=== PATIENT | female | born 1990 | race Caucasian/White ===

== ENCOUNTER → 2024-06-26 | Outpatient (CLI) | payer MEDICAID, SELFPAY ==
--- NOTE | 2024-06-26 15:00 | XR_ITS ---
Examination: Wrist, left 3 views Technique: Wrist AP, oblique, lateral 3 views Date and time of exam: June 26, 2024 1514 hours INDICATIONS: Left wrist pain months. FINDINGS: Mild osteopenia Mild narrowing radiocarpal joint and first carpometacarpal joint No fracture No erosive or other significant arthritic change IMPRESSION: No erosive or other significant arthritic change
--- NOTE | 2024-06-26 15:00 | XR_ITS ---
Examination: Hand, left 3 views Technique: Hand AP, oblique, lateral 3 views Date and time of exam: June 26, 2024 1514 hours INDICATIONS: Hand pain months FINDINGS: No fracture or dislocation Mild juxta-articular bone demineralization No erosive or other significant arthritis No cortical bone destruction No opaque foreign body IMPRESSION: No erosive or other significant arthritic change
== END | disposition home or self-care (01) ==
LOC: CDIM 14:45
PROVIDERS: PCP Internal Medicine; Referring Provider Internal Medicine; Visit Provider Internal Medicine
DX: M79.642 Pain in left hand (principal); M25.532 Pain in left wrist
CPT/HCPCS: 73110; 73130

== ENCOUNTER 2025-04-25 13:01 | Emergency (ER) | payer MEDICAID, SELFPAY ==
[2025-04-25 14:09] VITALS: BP 123/88; PULSE 91; RESP 18; TEMP 36.7; O2SAT 98; BMI 31.3
--- NOTE | 2025-04-25 14:31 | PD.EDBACK ---
ED Back Injury Pain RME/HPI General Chief Complaint: Back Pain/Injury Stated Complaint: LOWER BACK PAIN X 3 DAYS Time Seen by Provider: 04/25/25 14:16 Arrival date/time: 04/25/25 13:01 RME / HPI RME / HPI Narrative: 34-year-old female with a past medical history of chronic back pain presents to the ER complaining of an acute exacerbation of her chronic back pain worse with movement since today. Patient was previously on pain management however she is unable to continue with them as she is about to try in vitro , patient tried a lidocaine patch without relief. Denies any fever, nausea, urinary symptoms, vomiting, new injury, saddle anesthesias, leg weakness. Related Data Previous Rx's ?Medication ?Instructions ?Recorded ferrous sulfate 325 mg (65 mg 325 mg PO BID #60 tabs 03/20/24 iron) tablet hydrocodone 5 mg-acetaminophen 325 1 tab PO Q6H PRN pain #20 tabs 03/20/24 mg tablet ibuprofen 600 mg tablet 600 mg PO Q6H PRN pain #30 tabs 03/20/24 labetalol 200 mg tablet 200 mg PO BID #60 tabs 03/20/24 cyclobenzaprine 10 mg tablet 10 mg PO TID #10 tabs 04/25/25 Allergies Allergy/AdvReac Type Severity Reaction Status Date / Time No Known Allergies Allergy Verified 03/03/24 12:38 ED Exam Narrative Physical exam: Constitutional: Patient alert and oriented. Well appearing. No acute distress. Not toxic appearing. Head: Normocephalic, atraumatic. Eyes: Conjunctiva clear bilaterally. Mouth/Throat: Mucous membranes moist. No stridor or muffled voice. Handling secretions without difficulty. Neck: Supple. Trachea midline. No JVD. No nuchal rigidity. No midline tenderness or step-offs. Normal range of motion. Respiratory: Normal effort. No accessory muscle use or respiratory distress. Abdomen: Soft. Non-distended. Non-tender throughout. No pulsatile mass. No guarding or rebound. Back: No midline tenderness or step-offs. No CVA tenderness bilaterally. Positive paralumbar tenderness to palpation bilaterally. Upper Extremities: No gross deformities. No focal motor deficits bilaterally. Lower Extremities: Heel-toe gait intact without difficulty. Deep tendon reflexes 2+ symmetric for lower extremities bilaterally. No gross deformities. No edema or calf tenderness. No focal motor or sensory deficits bilaterally. Neuro: Speech normal. CN II?XII grossly intact. GCS 15. Skin: Warm, dry, normal color. Psych: Normal affect. Cooperative. Normal insight. Course Quality Measures none Orders Category Date Time Status Morphine* Inj Med 04/25/25 14:35 Discontinued 4 mg IM X1 ONE Ondansetron Odt [Zofran Odt] Med 04/25/25 14:35 Discontinued 4 mg PO X1 ONE Reevaluation(s) Reevaluation #1: At the time of reassessment, the patient remains alert and oriented ?3 with GCS 15. Vitals are normal, pain is controlled, and the patient is tolerating oral intake without nausea or vomiting. The patient is agreeable to discharge and verbalizes understanding of the diagnosis, studies, treatment plan, medications (including side effects/precautions), and strict ER return precautions as discussed in the ED. All concerns were addressed, and the patient is comfortable with the plan. Time: 16:00 Vital Signs Vital signs: Vital Signs Temperature 98.1 F 04/25/25 14:09 Pulse Rate 91 04/25/25 14:09 Respiratory Rate 18 04/25/25 14:09 Blood Pressure 123/88 H 04/25/25 14:09 Pulse Oximetry (%) 98 04/25/25 14:09 Oxygen Delivery Method Room Air 04/25/25 14:09 Back Pain / Injury MDM Narrative MDM Narrative:: This patient presents with acute low back pain most consistent with musculoskeletal strain or spasm. Pain is localized without radiation, paresthesia, or weakness. No bowel or bladder incontinence.No acute neurologic deficits. Doubt cauda equina syndrome, spinal cord compression, infection, trauma, malignancy, dissection, or nephrolithiasis based on history, exam, and absence of red flag symptoms. Doubt renal colic, pyelonephritis, or obstructive uropathy?pain localized to lower back without flank radiation or CVA tenderness. Advanced imaging (CT/MRI) considered but not indicated given absence of neurologic deficits or high-risk features. Plan: Symptomatic management with analgesics, stretching, and activity as tolerated. Discussed medication precautions and return precautions for worsening pain, fever, new weakness, numbness, or bowel/bladder changes. Advised follow-up with PCP within 1?2 days for reassessment. Patient data External records reviewed:: [facility] previous records Clinical information provided by:: patient Social determinants that could affect healthcare access:: none Patient has the following chronic illnesses:: Chronic back pain How is presenting disease/condition affected by chronic disease/condition?: exacerbated by Evaluation data The following diagnostics were reviewed and interpreted by me:: other (specify) Lab and/or radiology exams considered but not ordered:: Additional Labs and radiology considered, but not ordered as they were not clinically indicated at this time. Interpretation Summary: As noted Medications / Prescriptions Medications or Prescriptions considered but not ordered:: I considered prescription management (both outpatient prescriptions AND drug treatment in the ER) and decided that this was necessary and was prescribed as charted. Medication administrations:: Medication Administration History Discontinued Medications Morphine Sulfate (Morphine Sulf Inj 4 Mg/Ml Vial) 4 mg IM X1 ONE Stop: 04/25/25 14:36 Last Admin: 04/25/25 15:44 Dose: 4 mg Documented By: Ondansetron HCl (Ondansetron Odt 4 Mg Tabrap) 4 mg PO X1 ONE; Protocol Stop: 04/25/25 14:36 Last Admin: 04/25/25 15:43 Dose: 4 mg Documented By: As noted Consultations Consultation(s) initiated? (list below): No Diagnosis Differential diagnosis back pain/injury: lumbar radiculopathy, strain of lumbar region and thoracic back pain Most likely diagnosis given after review of the tests above:: Musculoskeletal back pain Admission Indicated Admission indicated?: not indicated Admission Request Was there a request for admission?: No Disposition Plan Disposition Plan: Discharge Discharge Attestation Discharge Attestation: The patient and all family members were given an opportunity to ask questions and understood the discharge instructions. Discharge instructions specifically effects, indications for sooner follow up or return to the emergency department, and the expected course of current diagnosis. Patient condition: Stable Discharge Plan Plan Patient Disposition: HOME (Self Care) Patient condition on transfer: Stable Prescriptions/Referrals Prescriptions/Med Rec: New cyclobenzaprine 10 mg tablet 10 mg PO TID Qty: 10 0RF No Action hydrocodone-acetaminophen 5-325 mg tablet 1 tab PO Q6H MDD 4 PRN (Reason: pain) Qty: 20 0RF ibuprofen 600 mg tablet 600 mg PO Q6H PRN (Reason: pain) Qty: 30 0RF labetalol 200 mg tablet 200 mg PO BID Qty: 60 1RF ferrous sulfate 325 mg (65 mg iron) tablet 325 mg PO BID Qty: 60 1RF Problem List Clinical Impression: Low back pain Patient/Caregiver Discharge Instructions Education Materials: Back Basics: A Healthy Spine Additional Instructions: Follow up with your primary medical doctor within 24 hours. Return to the Emergency Room immediately for any new, worsening, continuing symptoms or any concerns at all. Return to the Emergency Room within 24 hours if you are unable to follow up with your primary medical doctor within 24 hours. Print Language: Telugu Stand Alone Forms: Kesha Award Info., Patient Portal Info Letter PA/[employer] HAND Supervising Physician PA/[employer] HAND Supervising Physician: Dr. Davis
[2025-04-25] MEDS: ONDANSETRON ODT 4 MG TABRAP PO (15:43)
[2025-04-25] MEDS: MORPHINE SULF INJ 4 MG/ML VIAL IM (15:44)
== END 2025-04-25 16:51 | disposition home or self-care (01) ==
PROVIDERS: Emergency Provider Family Medicine
DX: M54.50 Low back pain, unspecified (principal); G89.29 Other chronic pain
CPT/HCPCS: 96372; 99282; J2270; Q0162

== ENCOUNTER 2025-06-08 23:19 | Emergency (ER) | payer MEDICAID, SELFPAY ==
[2025-06-08 23:21] VITALS: BMI 33.6
[2025-06-09 00:39] VITALS: BP 123/89; PULSE 80; RESP 20; TEMP 36.8; O2SAT 98
--- NOTE | 2025-06-09 01:09 | XR_ITS ---
Examination: Complete OB ultrasound, less than 14 weeks, transabdominal Date and time of exam: June 09, 2025, 0134 hours INDICATIONS: Pelvic pain beginning 2 days ago, early intrauterine gestation by history Technique: Obstetrical ultrasound images less than 14 weeks performed via transabdominal imaging Findings: Uterus 8.4 cm endometrial stripe 1.3 cm No uterine mass or intrauterine gestation Right ovary 4.9 cm arterial flow 22 x 13 mm cyst Left ovary obscured by bowel gas IMPRESSION: No intrauterine gestation no uterine mass
--- NOTE | 2025-06-09 01:09 | PD.EDRME ---
Rapid Medical Screening Exam RME Arrival date/time: 06/08/25 23:19 This is a case of 34-year-old female who came into the emergency room due to abdominal cramping patient took test and it is positive patient took IVF last month patient now have abdominal cramping but no vaginal bleeding vaginal discharge vaginal spotting Chief Complaint: Abdominal Pain Time Seen by Provider: 06/08/25 23:25 Vital signs: Vital Signs Temperature 98.3 F 06/09/25 00:39 Pulse Rate 80 06/09/25 00:39 Respiratory Rate 20 06/09/25 00:39 Blood Pressure 123/89 H 06/09/25 00:39 Pulse Oximetry (%) 98 06/09/25 00:39 Oxygen Delivery Method Room Air 06/09/25 00:39 Exam: Abdominal exam is benign nonsurgical no guarding no rebound no rigidity no tenderness Clinical Impression: Abdominal pain in
[2025-06-09 02:05] LABS: Collection Type, Urine Voided
[2025-06-09 02:14] LABS: Basophils # (Auto) 0.0 Thou/mm3 (0.0-0.2); Basophils % (Auto) 0 % (0-2.5); Eosinophils # (Auto) 0.0 Thou/mm3 (0.0-0.5); Eosinophils % (Auto) 0 % (0-10); Hematocrit 42.7 % (36.0-46.0); Hemoglobin 14.2 g/dL (12.0-16.0); Immature Granulocytes Auto 0.04 Thou/mm3 (0.00-0.00); Lymphocytes # (Auto) 2.5 Thou/mm3 (1.0-4.8); Lymphocytes % (Auto) 25 % (10-50); Mean Corpuscular HGB Conc 33.3 g/dl (31.0-37.0); Mean Corpuscular Hemoglobin 29.7 pg (25.0-35.0); Mean Corpuscular Volume 89 fL (80-100); Monocytes # (Auto) 0.6 Thou/mm3 (0.0-0.8); Monocytes % (Auto) 6 % (0-12); Neutrophils # (Auto) 6.6 Thou/mm3 (1.8-7.7); Neutrophils % (Auto) 68 % (37-80); Nucleated Red Blood Cell # 0.00 Thou/mm3 (0.00-0.00); Nucleated Red Blood Cell % 0 /100 WBC (0); Platelet Count 200 Thou/mm3 (140-440); RDW Standard Deviation 36.9 fL (36.4-46.3); Red Blood Count 4.78 Miln/mm3 (4.00-5.20); White Blood Count 9.7 Thou/mm3 (3.6-11.0)
[2025-06-09 02:25] LABS: Amorphous Crystals,Urine Present (Absent); Bacteria,Urine 1+; Bilirubin,Urine Negative (Negative); Blood,Urine Negative (Negative); Clarity,Urine Turbid (Clear/Hazy); Color,Urine Lt-Yellow (Lt Yel-Yel); Glucose, Urine Negative (Negative); Ketones,Urine Negative (Negative); Leukocyte Esterase,Urine Positive (Negative); Nitrite,Urine Negative (Negative); PH,Urine 7.0 (5.0-7.0); Protein,Urine Negative (Neg - Trace); RBC,Urine 10 /hpf (0-3); Specific Gravity,Urine 1.016 (1.001-1.035); Squamous Epithelial Cell,Urine 7 /hpf (0-5); Urobilinogen,Urine Negative mg/dL (0.0-1.0); WBC,Urine 43 /hpf (0-5)
[2025-06-09 02:35] LABS: Alanine Aminotransferase 13 U/L (10-49); Albumin, Serum 4.7 gm/dL (3.5-5.0); Albumin/Globulin Ratio 1.7 (1.2-2.2); Alkaline Phosphatase 58 U/L (46-116); Anion Gap 10 (7-16); Aspartate Amino Transferase 18 U/L (0-34); BUN/Creatinine Ratio 7 Ratio (12-20); Beta HCG,Quantitative 11 mIU/mL (<5.0); Bilirubin,Total 0.3 mg/dL (0.3-1.2); Blood Urea Nitrogen 7 mg/dL (9-23); Calcium 9.7 mg/dL (8.3-10.6); Calcium (Corrected) 9.7 mg/dL (8.5-10.1); Carbon Dioxide 25.4 mMol/L (20.0-31.0); Chloride 105 mMol/L (98-107); Creatinine (Component) 1.0 mg/dL (0.6-1.3); Estimated Creatinine Clearance 81.7 mL/min (>60); Globulin 2.7 gm/dL (2.3-3.5); Glucose 92 mg/dL (74-106); Osmolality,Calculated 277 (275-295); Potassium 4.4 mMol/L (3.4-5.1); Sodium 140 mMol/L (136-145); Total Protein 7.4 gm/dL (5.7-8.2); eGFR > 60 See Note
--- NOTE | 2025-06-09 02:49 | PRELIM_ITS ---
Pelvic ultrasound (transabdominal with Doppler and wave Doppler spectral analysis). June 09, 2025 at 0134 hours Clinical history: Vaginal bleeding Technique: Real-time, grayscale, transabdominal pelvic ultrasound was performed using Duplex scanning including arterial inflow, venous outflow, color and spectral Doppler. Comparison: None available at the time of this report. Findings: The uterus is normal in size measuring 4.7 x 8.4 x 4.0 cm. The endometrium is unremarkable and measures 1.3 cm. The right ovary measures 4.9 x 3.5 x 3.9 cm, mild complex cystic lesion measuring 2.3 x 1.3 x 1.3 cm. The left ovary was not visualized. The right ovary demonstrates color flow and spectral waveforms on Doppler evaluation. There is no adnexal mass. There is no free fluid on the submitted images. Impression: No evidence of ovarian torsion. Mild complex right ovarian cystic lesion, possibly functional. Consider follow-up in 3 months. Left ovary was not visualized. Consider correlation with MRI if clinically indicated. Report Electronically Signed By: Laci Garza 06/09/2025 2:48:05 AM [EST]
--- NOTE | 2025-06-09 03:06 | PD.EDABDPN ---
ED Abdominal Pain RME/HPI General Chief Complaint: Abdominal Pain Stated complaint: ABD PAIN, NAUSEATED,HEADACHE Time seen by provider: 06/08/25 23:25 Arrival date/time: 06/08/25 23:19 RME / HPI RME / HPI narrative: 06/08/25 23:19 This is a case of 34-year-old female who came into the emergency room due to abdominal cramping patient took test and it is positive patient took IVF last month patient now have abdominal cramping but no vaginal bleeding vaginal discharge vaginal spotting Dr. Ellis?s Main ED Evaluation: 34yo female who is currently undergoing in vitro fertilization presents to the ED for a chief complaint of sharp lower abdominal pain x 1 day. Patient reports she did her IVF injections on 06/03/25 and took a test today, which was positive. Patient developed sudden sharp lower abdominal pain over the last 1 day and was concerned, so she came in for evaluation. Patient denies any N/V, fever, chills, abnormal vaginal discharge, vaginal bleeding, or any other associated symptoms. NKA. Related Data Previous Rx's ?Medication ?Instructions ?Recorded ferrous sulfate 325 mg (65 mg 325 mg PO BID #60 tabs 03/20/24 iron) tablet hydrocodone 5 mg-acetaminophen 325 1 tab PO Q6H PRN pain #20 tabs 03/20/24 mg tablet ibuprofen 600 mg tablet 600 mg PO Q6H PRN pain #30 tabs 03/20/24 labetalol 200 mg tablet 200 mg PO BID #60 tabs 03/20/24 cyclobenzaprine 10 mg tablet 10 mg PO TID #10 tabs 04/25/25 cephalexin 500 mg capsule 1,000 mg (2 x 500 mg) PO BID 7 06/09/25 days #28 caps Allergies Allergy/AdvReac Type Severity Reaction Status Date / Time No Known Allergies Allergy Verified 06/08/25 23:20 Review of Systems Review of Systems Systems Reviewed: All systems reviewed, normal except as documented Past Medical History Past Medical History NEUROLOGIC: Negative Neurological Disorders or Seizures CARDIAC: Negative Cardiac Disorders, Congestive Heart Failure, Edema, Cellulitis or Varicose Veins RESPIRATORY: Negative Chronic Obstructive Pulmonary Disease (COPD), Asthma, Tuberculosis or Sleep Apnea GASTROINTESTINAL: Negative Gastrointestinal Disorders or Hepatitis GENITOURINARY: Negative Genitourinary Disorders or Renal Disease REPRODUCTIVE: Positive Endometriosis MUSCULOSKELETAL: Positive Musculoskeletal Disorders ENDOCRINE: Positive Endocrine Disorders and Hypothyroidism; Negative Diabetes Mellitus Type 1 or Diabetes Mellitus Type 2 HEMATOLOGIC: Negative Blood Disorders or Sickle Cell Disease PSYCHO/SOCIAL: Positive Depression, Anxiety and Post Traumatic Stress Disorder OTHER HISTORY: Positive Falls and Chicken Pox; Negative Hospitalization, Shingles, Blood Transfusions, Blood Transfusion Reaction, Anesthesia Reactions, Chemotherapy, Radiation Therapy, MRSA, Measles, Mumps or Cancer Surgical History SURGICAL: Positive Abdominal Surgery; Negative Pacemaker Social History SMOKING STATUS: Never smoker SECOND HAND EXPOSURE: No SUBSTANCE USE: does not use ED Exam Narrative Physical exam: Generally patient is alert and in no obvious distress, neck shows no nuchal rigidity, heart regular rate and rhythm, lungs clear to auscultation equal bilaterally, abdomen soft bowel sounds present nondistended mild suprapubic abdominal tenderness without rebound, skin is warm pale and dry, neurologic exam shows Chey Coma Scale of 15 without ataxia or focal motor deficit Course Quality Measures none Orders Category Date Time Status US OB <= 14 weeks fetus Stat Exams 06/09/25 01:09 Taken ABO/RH Type Stat Lab 06/09/25 01:51 Completed Beta HCG,Quantitative Stat Lab 06/09/25 01:51 Completed CBC Stat Lab 06/09/25 01:51 Completed CMP [Comprehensive Metabolic Panel] Stat Lab 06/09/25 01:51 Completed Urinalysis Stat Lab 06/09/25 01:57 Completed Acetaminophen Tab [Tylenol Tab] Med 06/09/25 03:13 Discontinued 650 mg PO X1 ONE cefTRIAXone [Rocephin] 1,000 mg Med 06/09/25 03:13 Discontinued Lidocaine 1% Pf Vial 5ml [Xylocaine 1% Pf 5 ml] 2.1 ml IM X1 Vital Signs Vital signs: Vital Signs Temperature 98.3 F 06/09/25 00:39 Pulse Rate 80 06/09/25 00:39 Respiratory Rate 20 06/09/25 00:39 Blood Pressure 123/89 H 06/09/25 00:39 Pulse Oximetry (%) 98 06/09/25 00:39 Oxygen Delivery Method Room Air 06/09/25 00:39 Abdominal Pain MDM MDM Narrative MDM Narrative:: Scribe Attestation: 06/09/25 - Beatriz Kim am scribing for and in the presence of Dr. Ellis. I interpreted all labs. There is no leukocytosis or fever. Urine is infected. Quantitative beta-hCG is 11. Pelvic ultrasound showed no intrauterine or evidence for ectopic. Patient undergoes in vitro fertilization. She will be given Tylenol 650 mg p.o. for headache here in the emergency room. She will also be given ceftriaxone 1 g IM and started on cephalexin to be taken as prescribed. Follow-up with her in vitro fertilization physician and return to emergency room as needed or if condition worsens. Patient data External records reviewed:: [facility] previous records (Per chart review, patient was seen here on 04/25/25 for low back pain.) Clinical information provided by:: patient Social determinants that could affect healthcare access:: none Patient has the following chronic illnesses:: endometriosis How is presenting disease/condition affected by chronic disease/condition?: uneffected by Evaluation data The following diagnostics were reviewed and interpreted by me:: lab results and radiology exam(s) Lab and/or radiology exams considered but not ordered:: none Interpretation Summary: Teler[facility] Preliminary Report Draft Patient: OSWALDO OLIVO Record#: [id number] Birthdate: 1990 Age/Sex: 34 / F Location: [facility] Attending Dr: Ordering Physician: Date of Service: Procedure(s): Accession Number(s): cc: ~ Pelvic ultrasound (transabdominal with Doppler and wave Doppler spectral analysis). June 09, 2025 at 0134 hours Clinical history: Vaginal bleeding Technique: Real-time, grayscale, transabdominal pelvic ultrasound was performed using Duplex scanning including arterial inflow, venous outflow, color and spectral Doppler. Comparison: None available at the time of this report. Findings: The uterus is normal in size measuring 4.7 x 8.4 x 4.0 cm. The endometrium is unremarkable and measures 1.3 cm. The right ovary measures 4.9 x 3.5 x 3.9 cm, mild complex cystic lesion measuring 2.3 x 1.3 x 1.3 cm. The left ovary was not visualized. The right ovary demonstrates color flow and spectral waveforms on Doppler evaluation. There is no adnexal mass. There is no free fluid on the submitted images. Impression: No evidence of ovarian torsion. Mild complex right ovarian cystic lesion, possibly functional. Consider follow-up in 3 months. Left ovary was not visualized. Consider correlation with MRI if clinically indicated. Report Electronically Signed By: Laci Garza 06/09/2025 2:48:05 Medications / Prescriptions Medications or Prescriptions considered but not ordered:: none Medication administrations:: Medication Administration History Discontinued Medications Acetaminophen (Acetaminophen 325 Mg Tablet) 650 mg PO X1 ONE Stop: 06/09/25 03:14 Ceftriaxone Sodium 1,000 mg/ (Lidocaine HCl 2.1 ml) 0 mg IM X1 ONE Stop: 06/09/25 03:14 see above Consultations Consultation(s) initiated? (list below): No Diagnosis Differential diagnosis abdominal pain: other (See MDM) Most likely diagnosis given after review of the tests above:: see clinical impression below Admission Indicated Admission indicated?: not indicated Admission Request Was there a request for admission?: No Disposition Plan Disposition Plan: Discharge Discharge Attestation Discharge Attestation: The patient and all family members were given an opportunity to ask questions and understood the discharge instructions. Discharge instructions specifically effects, indications for sooner follow up or return to the emergency department, and the expected course of current diagnosis. Patient condition: Stable Discharge Plan Plan Patient Disposition: HOME (Self Care) Prescriptions/Referrals Prescriptions/Med Rec: New cephalexin 500 mg capsule 1,000 mg PO BID 7 Days Qty: 28 0RF No Action hydrocodone-acetaminophen 5-325 mg tablet 1 tab PO Q6H MDD 4 PRN (Reason: pain) Qty: 20 0RF ibuprofen 600 mg tablet 600 mg PO Q6H PRN (Reason: pain) Qty: 30 0RF labetalol 200 mg tablet 200 mg PO BID Qty: 60 1RF ferrous sulfate 325 mg (65 mg iron) tablet 325 mg PO BID Qty: 60 1RF cyclobenzaprine 10 mg tablet 10 mg PO TID Qty: 10 0RF Referrals: Zoya Weiner MD [Primary Care Provider] - In 1 week Problem List Clinical Impression: Urinary tract infection, Patient/Caregiver Discharge Instructions Education Materials: ED CYSTITIS Female Adult Additional Instructions: Take the antibiotic as prescribed. Tylenol for pain. Follow-up with your [facility] physician. Return to ER as needed or if condition worsens. Print Language: Syriac Stand Alone Forms: Kesha Award Info., Patient Portal Info Letter
[2025-06-09 03:15] VITALS: BP 126/83; PULSE 82; RESP 18; O2SAT 98
[2025-06-09] MEDS: ACETAMINOPHEN 325 MG TABLET 650 MG PO (03:21)
== END 2025-06-09 03:30 | disposition home or self-care (01) ==
PROVIDERS: Nurse Practitioner Family; Emergency Provider Emergency Medicine; PCP Internal Medicine
DX: O23.40 Unspecified infection of urinary tract in pregnancy, unspecified trimester (principal); O34.80 Maternal care for other abnormalities of pelvic organs, unspecified trimester; N83.201 Unspecified ovarian cyst, right side; Z3A.00 Weeks of gestation of pregnancy not specified
CPT/HCPCS: 36415; 76801; 80053; 81001; 84702; 85025; 86900; 86901; 96372; 99283; J0696; J3490; A9270